=== PATIENT | female | born 1955 | race Caucasian/White ===

== ENCOUNTER 2021-07-16 06:30 | Day surgery (SDC) | payer OTHER, MEDICARE ==
[~2021-07-16] VITALS: Ht 163 cm; Wt 106.0 kg
[~2021-07-16 06:30] MED LIST: ALLERGY RELIEF10 MG PO; DOXYCYCLINE HYC20 MG PO; LISINOPRIL-HCT1 EAC2 PO; VITAMIN B-121000 MC1 PO; VITAMIN B-650 MG PO
[2021-07-16 07:29] LABS: HGB 14.5 g/dl (12.5-16.0); MCHC 34.5 g/dL (32.0-36.0); MCV 95.7 fL (78.0-100.0); MPV 9.7 fL (6.0-9.5); RBC 4.39 M/uL (4.20-5.40); RDW 13.4 % (11.5-14.0); WBC 5.2 K/uL (4.0-10.5)
[2021-07-17 07:13] LABS: BASOPHIL 0.2 % (0-2); EOSINOPHIL 1.5 % (0-7); HCT 34.6 % (37.0-47.0); HGB 11.6 g/dl (12.5-16.0); LYMPHOCYTE 24.9 % (15-48); MCH 33.3 pg (25.0-31.0); MCHC 33.5 g/dL (32.0-36.0); MCV 99.4 fL (78.0-100.0); MONOCYTE 6.6 % (0-12); MPV 9.5 fL (6.0-9.5); NEUTROPHIL 66.3 % (41-80); NRBC 0; PLT 220 K/uL (150-400); RBC 3.48 M/uL (4.20-5.40); RDW 13.7 % (11.5-14.0); WBC 6.7 K/uL (4.0-10.5)
[2021-07-17 07:50] LABS: BUN/CREAT RATIO (CALC) 24.6 RATIO; CREATININE 0.69 mg/dL (0.51-0.95); POTASSIUM 4.1 mmol/L (3.5-5.1)
[2021-07-17] MEDS ORDERED: OXYCODONE-ACET1 EAC1 PO (08:51)
[2021-07-17] MEDS ORDERED: FEOSOL325 MG PO (08:51)
[2021-07-17] MEDS ORDERED: XARELTO10 MG PO (08:51)
== END 2021-07-17 12:30 | disposition home or self-care (01) ==
LOC: FAS 06:30 → FMS 10:38 → FAS 07-17 12:30
PROVIDERS: Anesthesiology; Legal Medicine
DX: M17.11 Unilateral primary osteoarthritis, right knee (principal); I10 Essential (primary) hypertension; G89.18 Other acute postprocedural pain; Z79.899 Other long term (current) drug therapy
CPT/HCPCS: 36415; 73560; 80048; 85025; 86850; 86900; 86901; 94010; 97110; 97162; 97166; 97530-GP; C1713; C1776; J0171; J0697; J1100; J1170; J1885; J2250; J2270; J2405; J2704; J2795; J3010; J7120